=== PATIENT | male | born 1970 | race Caucasian/White ===

== ENCOUNTER 2016-11-23 01:59 | Emergency (ER) | payer BC ==
[~2016-11-23] VITALS: Ht 170.2 cm; Wt 105.0 kg
[2016-11-23 02:02] VITALS: BP 186/119; PULSE 78; RESP 20; TEMP 97.6; O2SAT 98
[2016-11-23] MEDS ORDERED: SODIUM CHLOR 0.9% 1000 ML INJ 1,000 ML IV SCH (02:20)
[2016-11-23] MEDS ORDERED: SODIUM CHLORIDE 0.9% FLUSH 10 ML FLUSH IV FLUSH PRN (02:30)
[2016-11-23] MEDS ORDERED: MORPHINE SULFATE 4 MG/ML INJ IV PUSH ONE (02:30)
[2016-11-23] MEDS ORDERED: ONDANSETRON HCL 4 MG/2 ML VIAL IVP ONE (02:30)
[2016-11-23 02:31] LABS: AUTOMATED NEUTROPHIL # 4.2 TH/MM3 (1.8-7.7); BASOPHIL # 0.1 TH/MM3 (0-0.2); BASOPHIL % 1.3 % (0.0-2.0); EOSINOPHIL # 0.2 TH/MM3 (0-0.4); EOSINOPHIL % 2.4 % (0.0-4.0); HEMATOCRIT 49.5 % (39.0-51.0); HEMO FLAGS DIFF FINAL; LYMPH % 32.7 % (9.0-44.0); LYMPHOCYTE # 2.5 TH/MM3 (1.0-4.8); MEAN CELL VOLUME 80.9 FL (80.0-100.0); MEAN CORPUSCULAR HEMOGLOBIN 27.3 PG (27.0-34.0); MEAN CORPUSCULAR HGB CONC 33.7 % (32.0-36.0); MONO % 9.9 % (0.0-8.0); NEUT % 53.7 % (16.0-70.0); PLATELET COUNT 239 TH/MM3 (150-450); RED BLOOD COUNT 6.12 MIL/MM3 (4.50-5.90); RED CELL DISTRIBUTION WIDTH 14.6 % (11.6-17.2); WHITE BLOOD COUNT 7.8 TH/MM3 (4.0-11.0)
[2016-11-23 02:40] LABS: APTT (PATIENT) 28.5 SEC (24.3-30.1); INTERNATIONAL NORMALIZED RATIO 0.9 RATIO; PROTHROMBIN TIME - PATIENT 9.9 SEC (9.8-11.6)
[2016-11-23 02:58] LABS: ALKALINE PHOSPHATASE 65 U/L (45-117); ALT (GPT) 73 U/L (12-78); ANION GAP 7 MEQ/L (5-15); AST (GOT) 41 U/L (15-37); BICARBONATE 31.3 MEQ/L (21.0-32.0); BLOOD UREA NITROGEN 20 MG/DL (7-18); CHLORIDE 104 MEQ/L (98-107); GLOMERULAR FILTRATION RATE 69 ML/MIN (>89); INDIRECT BILIRUBIN 0.3 MG/DL (0.0-0.8); POTASSIUM 4.1 MEQ/L (3.5-5.1); SODIUM (NA) 142 MEQ/L (136-145); TOTAL BILIRUBIN ADULT 0.4 MG/DL (0.2-1.0)
--- NOTE | 2016-11-23 03:40 | RADRPT ---
EXAM DATE/TIME: 11/23/2016 03:22 [place] COMPARISON: No previous studies available for comparison. INDICATIONS : Epigastric pain with nausea. ORAL CONTRAST: No oral contrast ingested. RADIATION DOSE: 15.75 CTDIvol (mGy) MEDICAL HISTORY : Hypertension. SURGICAL HISTORY : None. ENCOUNTER: Initial ACUITY: 1 day PAIN SCALE: 7/10 LOCATION: epigastric TECHNIQUE: Volumetric scanning of the abdomen and pelvis was performed. Using automated exposure control and ad justment of the mA and/or kV according to patient size, radiation dose was kept as low as reasonably achievable to obtain optimal diagnostic quality images. DICOM format image data is available electro nically for review and comparison. FINDINGS: Lung bases are clear. There are degenerative changes of the lumbar spine. No pleural or pericardial e ffusions are seen. Liver, gallbladder, spleen, pancreas, adrenal glands, bilateral kidneys are normal in appearance . Stomach, urinary bladder, prostate, small bowel unremarkable. Scattered diverticuli of the large bowel without diverticulitis. Appendix normal. No adenopathy or aneurysm. C.ONCLUSION: No acute disease. Efrain Soto MD on November 23, 2016 at 3:36 Board Certified Radiologist. This report was verified electronically.
[2016-11-23] MEDS ORDERED: ALUMINUM/MAGNESIUM/SIMETH 30 ML CUP PO ONE (03:45)
[2016-11-23] MEDS ORDERED: HYDROmorphone HCL PF 1 MG/ML VIAL IVS ONE (03:45)
[2016-11-23] MEDS ORDERED: PANTOPRAZOLE SODIUM 40 MG VIAL IVP ONE (03:45)
[2016-11-23] MEDS ORDERED: LIDOCAINE VISCOUS 2% SOLN 15 ML UDC PO ONE (03:45)
[2016-11-23 04:06] LABS: BLOOD, URINE NEG (NEG); COMMENT (UR) CULT NOT INDICATED; CULTURE IF INDICATED CULT NOT INDICATED; GLUCOSE,URINE NEG (NEG); KETONE, URINE NEG (NEG); NITRITE,URINE NEG (NEG); PH, URINE 7.5 (5.0-8.5); URINE COLOR LIGHT-YELLOW (YELLW/STRAW)
--- NOTE | 2016-11-23 04:18 | PD ---
HPI Chief Complaint: Abdominal Pain Time Seen by Provider: 02:14 Travel History International Travel<30 days: No Contact w/Intl Traveler<30days: No Traveled to known affect area: No History of Present Illness HPI Patient is a 45 year old male who comes in complaining of epigastric pain. He says the pain started a few hours ago and woke him up from sleep. He says that he had some heartburn after dinner, but this feels totally different. He says the pain goes through to his back. He denies nausea or vomiting. He has not had fever or chills. He denies chest pain or SOB. [facility] Past Medical History Diminished Hearing: No Hypertension: Yes Social History Alcohol Use: Yes (socially) Tobacco Use: No Substance Use: No Allergies-Medications (Allergen,Severity, Reaction): Coded Allergies: Contrast Media (Verified Allergy, Unknown, 11/23/16) Review of Systems Except as stated in HPI: all other systems reviewed are Neg General / Constitutional: No: Fever, Chills HENT: No: Headaches, Lightheadedness Cardiovascular: No: Chest Pain or Discomfort Respiratory: No: Shortness of Breath Gastrointestinal: Positive: Abdominal Pain Musculoskeletal: No: Pain Skin: No Rash, No Change in Pigmentation Neurologic: No: Weakness, Dizziness Physical Exam Narrative GENERAL: Awake and alert, in mild distress due to pain. SKIN: Focused skin assessment warm/dry. HEAD: Atraumatic. Normocephalic. EYES: Pupils equal and round. No scleral icterus. ENT: Mucous membranes pink and moist. NECK: Trachea midline. No JVD. CARDIOVASCULAR: Regular rate and rhythm. No murmur appreciated. RESPIRATORY: No accessory muscle use. Clear to auscultation. Breath sounds equal bilaterally. GASTROINTESTINAL: Abdomen soft, nondistended. Tender to palpation of the epigastric area and RUQ. No rebound or guarding. MUSCULOSKELETAL: No obvious deformities. No clubbing. No cyanosis. No edema. NEUROLOGICAL: Awake and alert. No obvious cranial nerve deficits. Motor grossly within normal limits. Normal speech. PSYCHIATRIC: Appropriate mood and affect; insight and judgment normal. Data Data Last Documented VS Vital Signs Date Time Temp Pulse Resp B/P Pulse Ox O2 Delivery O2 Flow Rate FiO2 11/23/16 04:05 16 11/23/16 02:02 97.6 78 186/119 98 Room Air Orders Basic Metabolic Panel (Bmp) (11/23/16 02:20) Complete Blood Count With Diff (11/23/16 02:20) Lipase (11/23/16 02:20) Prothrombin Time / Inr (Pt) (11/23/16 02:20) Act Partial Throm Time (Ptt) (11/23/16 02:20) Urinalysis - C+S If Indicated (11/23/16 02:20) Ua Includes Microscopic (11/23/16 02:20) Iv Access Insert/Monitor (11/23/16 02:20) Ecg Monitoring (11/23/16 02:20) Oximetry (11/23/16 02:20) Morphine Inj (Morphine Inj) (11/23/16 02:30) Ondansetron Inj (Zofran Inj) (11/23/16 02:30) Sodium Chlor 0.9% 1000 Ml Inj (Ns 1000 M (11/23/16 02:20) Sodium Chloride 0.9% Flush (Ns Flush) (11/23/16 02:30) Hepatic Functional Panel (11/23/16 02:20) Troponin I (11/23/16 02:20) Ct Abd/Pel W/O Iv Contrast (11/23/16 ) Pantoprazole Inj (Protonix Inj) (11/23/16 03:45) Hydromorphone Pf Inj (Dilaudid Pf Inj) (11/23/16 03:45) Al-Mag Hy-Si 40-40-4 Mg/Ml Liq (Mag-Al P (11/23/16 03:45) Lidocaine 2% Viscous (Xylocaine 2% Visco (11/23/16 03:45) Dicyclomine Inj (Bentyl Inj) (11/23/16 04:45) Labs Laboratory Tests Test 11/23/16 11/23/16 02:25 03:30 White Blood Count 7.8 TH/MM3 Red Blood Count 6.12 MIL/MM3 Hemoglobin 16.7 GM/DL Hematocrit 49.5 % Mean Corpuscular Volume 80.9 FL Mean Corpuscular Hemoglobin 27.3 PG Mean Corpuscular Hemoglobin 33.7 % Concent Red Cell Distribution Width 14.6 % Platelet Count 239 TH/MM3 Mean Platelet Volume 8.0 FL Neutrophils (%) (Auto) 53.7 % Lymphocytes (%) (Auto) 32.7 % Monocytes (%) (Auto) 9.9 % Eosinophils (%) (Auto) 2.4 % Basophils (%) (Auto) 1.3 % Neutrophils # (Auto) 4.2 TH/MM3 Lymphocytes # (Auto) 2.5 TH/MM3 Monocytes # (Auto) 0.8 TH/MM3 Eosinophils # (Auto) 0.2 TH/MM3 Basophils # (Auto) 0.1 TH/MM3 CBC Comment DIFF FINAL Differential Comment Prothrombin Time 9.9 SEC Prothromb Time International 0.9 RATIO Ratio Activated Partial 28.5 SEC Thromboplast Time Sodium Level 142 MEQ/L Potassium Level 4.1 MEQ/L Chloride Level 104 MEQ/L Carbon Dioxide Level 31.3 MEQ/L Anion Gap 7 MEQ/L Blood Urea Nitrogen 20 MG/DL Creatinine 1.14 MG/DL Estimat Glomerular Filtration 69 ML/MIN Rate Random Glucose 124 MG/DL Calcium Level 9.0 MG/DL Total Bilirubin 0.4 MG/DL Direct Bilirubin 0.1 MG/DL Indirect Bilirubin 0.3 MG/DL Aspartate Amino Transf 41 U/L (AST/SGOT) Alanine Aminotransferase 73 U/L (ALT/SGPT) Alkaline Phosphatase 65 U/L Troponin I LESS THAN 0.02 NG/ML Total Protein 7.7 GM/DL Albumin 3.8 GM/DL Lipase 220 U/L Urine Color LIGHT-YELLOW Urine Turbidity HAZY Urine pH 7.5 Urine Specific [place] 1.013 Urine Protein NEG mg/dL Urine Glucose (UA) NEG mg/dL Urine Ketones NEG mg/dL Urine Occult Blood NEG Urine Nitrite NEG Urine Bilirubin NEG Urine Urobilinogen LESS THAN 2.0 MG/DL Urine Leukocyte Esterase NEG Urine WBC 3 /hpf Urine Amorphous Sediment FEW Microscopic Urinalysis Comment CULT NOT INDICATED MDM Medical Decision Making Medical Screen Exam Complete: Yes Emergency Medical Condition: Yes Medical Record Reviewed: Yes Interpretation(s) ECG shows NSR, no ST elevation or depression Differential Diagnosis Cholecystitis versus cholelithiasis versus gastritis versus GERD versus pancreatitis Narrative Course Patient is a 45-year-old male who comes in complaining of epigastric abdominal pain. Exam shows tenderness to the midepigastric and right upper quadrant. IV established, labs sent. Labs show no acute abnormalities. Patient given morphine for pain. Patient had a CT done of his abdomen and pelvis shows no acute abnormalities. He says he still having a lot of pain. Given Dilaudid, GI cocktail. He reports feeling a little better and appears more comfortable. Given a dose of Bentyl. I explained to the patient that his labs and CT showed no evidence for a cause of his pain. I explained that, while I do not think it is likely, there is a possibility that due to the location of his pain, this could be related to his heart. He is offered admission for further testing, however, he declines at this time. He has an appointment with his PCP today. He is advised to keep that appointment. Advised to avoid spicy foods, tomatoes, peppers, caffeine, alcohol. Advised he may need to follow up with GI. Given prescriptions for Zantac, Bentyl, Lortab. Advised to return at any time for any worsening symptoms. Diagnosis Primary Impression: Gastritis Qualified Code: K29.00 - Acute gastritis without hemorrhage, unspecified gastritis type Patient Instructions: Gastritis (ED), General Instructions Additional Instructions: Follow up with your doctor as scheduled. Avoid spicy foods, alcohol, tomatoes, peppers. Take Zantac twice daily and pain medicine as needed. Take Bentyl to help with spasms of your stomach. Return to the ED as needed for any worsening symptoms. Scripts Hydrocodone-Acetaminophen (Lortab)5-325 Mg Tab1 Tab PO Q6H PRN (PAIN) #10 TAB Ref 0 Prov:Miriam Qureshi MD 11/23/16 Ranitidine (Zantac)150 Mg [id number] Mg PO BID #60 TAB Ref 0 Prov:Miriam Qureshi MD 11/23/16 Dicyclomine (Bentyl)10 Mg Cap10 Mg PO TID PRN (Bowel Management) #15 CAP Ref 0 Prov:Miriam Qureshi MD 11/23/16 Disposition: DISCHARGE HOME Condition: Stable Miriam Qureshi MD Nov 23, 2016 04:18
[2016-11-23] MEDS ORDERED: DICYCLOMINE HCL 20 MG/2 ML VIAL IM ONE (04:45)
[2016-11-23] MEDS ORDERED: ZANT150T2 PO (04:50)
[2016-11-23] MEDS ORDERED: HYDR-3533 PO (04:50)
[2016-11-23] MEDS ORDERED: DICY10 PO (04:50)
[2016-11-23 05:05] VITALS: RESP 16
[2016-11-23 05:51] VITALS: BP 147/99
--- NOTE | 2016-11-23 11:14 | EKG ---
Date Performed: 11/23/2016 Time Performed: 02:20:24 PTAGE: 45 years EKG: Sinus rhythm NORMAL ECG NO PREVIOUS TRACING DOCTOR: Suhas Cabrera Interpretating Date/Time 11/23/2016 11:12:43
== END 2016-11-23 05:52 | disposition home or self-care (01) ==
LOC: NEPC 01:59
DX: K29.00 Acute gastritis without bleeding (principal)
CPT/HCPCS: 74176; 80048; 80076; 81001; 83690; 84484; 85025; 85610; 85730; 93005; 96361; 96372; 96374; 96375; 99285; C9113; J0500; J1170; J2270; J2405; J7030